=== PATIENT | male | born 1935 | race Two or more races ===

== ENCOUNTER 2022-11-30 18:34 | Inpatient (IN) | payer MEDICARE, OTHER ==
[~2022-11-30] VITALS: Ht 182.9 cm; Wt 71.3 kg
[2022-11-30 20:31] LABS: BASOPHILS % 0.4 % (0.0-2.0); EOSINOPHILS % 0.1 % (0.0-5.0); HEMATOCRIT. 45.7 % (42.0-52.0); HEMOGLOBIN. 15.4 g/dL (14.0-18.0); MEAN CORPUSCULAR HEMOGLOBIN 29.7 pg (28.0-32.0); MEAN CORPUSCULAR HGB CONC 33.7 g/dL (31.0-37.0); MEAN CORPUSCULAR VOLUME 88.1 fL (80.0-94.0); MONOCYTES % 4.9 % (2.0-8.0); NEUTROPHILS % 82.6 % (40.0-76.0); PLATELET 238 x1000/uL (130-400); RED BLOOD CELL COUNT 5.18 mill/uL (4.7-6.1); WHITE BLOOD COUNT 17.1 x1000/uL (4.5-11.0)
[2022-11-30 20:43] LABS: CHLORIDE 130 mEq/L (98-107); INDEX HEMOLYSI 1 (1-3); INDEX ICTERIC 1 (1-4); INDEX LIPEMIC 1 (1-3); POTASSIUM 3.6 mEq/L (3.5-5.1); SODIUM 155 mEq/L (136-145)
[2022-11-30 20:54] LABS: ALANINE AMINOTRANSFERASE 34 IU/L (13-61); ALBUMIN 3.8 g/dL (3.4-5.0); ASPARTATE AMINOTRANSFERASE 54 IU/L (15-37); BILIRUBIN TOTAL 0.9 mg/dL (0.1-1.0); CALCIUM 9.6 mg/dL (8.5-10.1); CARBON DIOXIDE 21 mEq/L (21-32); CREATININE 3.1 mg/dL (0.6-1.3); ETHANOL BLOOD < 10 mg/dL (-10); GLUCOSE 204 mg/dL (70-105); PROTEIN TOTAL 7.6 g/dL (6.0-8.3); UREA NITROGEN BLOOD 64 mg/dL (7-21)
[2022-11-30 21:21] LABS: TROPONIN I HIGH SENSITIVITY 3280 ng/L (<78)
[2022-11-30] MEDS ORDERED: ASPIRIN 81MG TABLET PO ONE (23:15)
[2022-11-30] MEDS ORDERED: SODIUM CHLORIDE 0.45% 1,000 ML IV ONE (23:15)
[2022-11-30] MEDS ORDERED: ENOXAPARIN 80MG/0.8ML SYR SUBCUT ONE (23:15)
[2022-11-30] MEDS ORDERED: SODIUM CHLORIDE 0.9% 500 ML IV ONE (23:15)
[2022-12-01] MEDS ORDERED: DILTIAZEM HCL 5MG/ML 5ML VIAL IV NR (10:15)
[2022-12-01] MEDS ORDERED: CLOP75TA33 PO (10:36)
[2022-12-01] MEDS ORDERED: ATOR20TA65 PO (10:36)
[2022-12-01] MEDS ORDERED: AMLO10TA80 PO (10:36)
[2022-12-01 10:43] LABS: BASOPHILS % 0.3 % (0.0-2.0); HEMATOCRIT. 44.4 % (42.0-52.0); HEMOGLOBIN. 14.6 g/dL (14.0-18.0); LYMPHOCYTES % 12.9 % (20.0-50.0); MEAN CORPUSCULAR HEMOGLOBIN 29.5 pg (28.0-32.0); MEAN CORPUSCULAR HGB CONC 32.8 g/dL (31.0-37.0); MEAN CORPUSCULAR VOLUME 89.9 fL (80.0-94.0); MEAN PLATELET VOLUME 9.1 fl (7.4-10.4); MONOCYTES % 4.3 % (2.0-8.0); NEUTROPHILS % 82.5 % (40.0-76.0); PLATELET 212 x1000/uL (130-400); RED BLOOD CELL COUNT 4.94 mill/uL (4.7-6.1); RED CELL DISTRIBUTION WIDTH 15.9 % (11.6-14.6); WHITE BLOOD COUNT 16.2 x1000/uL (4.5-11.0)
[2022-12-01] MEDS: ASPIRIN 81MG TABLET PO SCH (10:45)
[2022-12-01] MEDS ORDERED: ONDANSETRON HCL 4MG/2ML INJ IV PRN (10:45)
[2022-12-01] MEDS ORDERED: ACETAMINOPHEN 325MG TABLET PO PRN (10:45)
[2022-12-01] MEDS: DEXT 5%/0.45% NACL 1000ML 1,000 ML IV SCH ×2 (10:45→20:44)
[2022-12-01] MEDS ORDERED: DEXTROSE 50% WATER 50ML SYRINGE IV PRN (10:45)
[2022-12-01 10:52] LABS: CALCIUM 9.1 mg/dL (8.5-10.1); POTASSIUM 3.5 mEq/L (3.5-5.1)
[2022-12-01 11:01] LABS: CREATININE 3.3 mg/dL (0.6-1.3)
[2022-12-01] MEDS ORDERED: PIPERACILLIN/TAZ 3.375G PREMIX 50 ML IV NR (11:45)
[2022-12-01] MEDS: INSULIN LISPRO 100 UNITS/ML SUBCUT SCH ×3 (12:00→20:49)
[2022-12-01 12:01] LABS: INR 1.3; PROTHROMBIN TIME 13.7 sec (9.6-11.0)
[2022-12-01] MEDS: BLOOD SUGAR DIAGNOSTIC STRIP TEST SCH ×3 (12:25→20:44)
[2022-12-01] MEDS ORDERED: IPRATROPIUM/ALBUTEROL 0.5-3(2.5)MG/3ML NEB HHN PRN (14:30)
[2022-12-01] MEDS ORDERED: LORAZEPAM 2MG/ML CPJ IV NR ×2 (15:15→17:15)
[2022-12-01 15:19] LABS: CLARITY URINE CLEAR (CLEAR); COLOR URINE DARK YELLOW (YELLOW); GLUCOSE URINE NEGATIVE (NEGATIVE); KETONES URINE TRACE (NEGATIVE); LEUKOCYTE ESTERASE URINE TRACE (NEGATIVE); NITRITE URINE NEGATIVE (NEGATIVE); OCCULT BLOOD URINE 3+ (NEGATIVE); PH URINE 5.5 (4.5-8.0); PROTEIN URINE 1+ (NEGATIVE); SPECIFIC GRAVITY URINE 1.016 (1.005-1.030)
[2022-12-01 15:22] LABS: SQUAMOUS EPITHELIAL CELL URINE 1+ /lpf (RARE/1+); YEAST URINE NONE SEEN
[2022-12-01 16:05] LABS: CREATINE KINASE MB FRACTION 32.4 ng/mL (0.5-3.6)
[2022-12-01 16:38] LABS: *AMPHETAMINES SCREEN URINE NEGATIVE (NEGATIVE); *BARBITURATES SCREEN URINE NEGATIVE (NEGATIVE); *BENZODIAZEPINES SCREEN URINE NEGATIVE (NEGATIVE); *COCAINE SCREEN URINE NEGATIVE (NEGATIVE); CANNABINOID URINE SCREEN NEGATIVE (NEGATIVE); ECSTASY MDMA SCREEN URINE NEGATIVE (NEGATIVE); METHADONE URINE SCREEN NEGATIVE (NEGATIVE); OPIATES URINE SCREEN NEGATIVE (NEGATIVE); PHENCYCLIDINE URINE SCREEN NEGATIVE (NEGATIVE)
[2022-12-01 16:51] LABS: BACTERIA URINE 2+
[2022-12-01 16:52] LABS: HYALINE CASTS URINE 0-5 /lpf; WBC URINE 0-2 /hpf (0-2)
[2022-12-01 17:45] LABS: INDEX HEMOLYSI 3 (1-3)
[2022-12-01 17:55] VITALS: BP 122/86; PULSE 87; RESP 14; TEMP 98.2
[2022-12-01 18:13] LABS: VITAMIN B12 SERUM 651 pg/mL (211-911)
[2022-12-01 20:00] VITALS: BP 108/71; PULSE 88; RESP 20; TEMP 98.6
[2022-12-01 20:43] LABS: AMMONIA 64 uMol/L (<32)
[2022-12-01 20:53] LABS: THYROID STIMULATING HORMONE 1.9 uIU/mL (0.36-3.74)
[2022-12-01 21:00] VITALS: BP 108/71; PULSE 88; RESP 20; TEMP 98.6
[2022-12-01] MEDS ORDERED: ASPI-1497 PO (22:26)
[2022-12-01] MEDS ORDERED: OXYB5TAB17 PO (22:26)
[2022-12-01 22:39] LABS: BG BASE EXCESS -5.1 mmol/L (-2.0-2.0); BG CARBOXYHEMOGLOBIN 0.2 % (0.5-1.5); BG DEOXYHEMOGLOBIN 2.9 % (0.0-5.0); BG FRACTION INSPIRED OXYGEN 21; BG HCO3 ACT 18.6 mmol/L (22.0-26.0); BG METHEMOGLOBIN 0.3 % (0.0-1.5); BG OXYGEN SATURATION 97.1 % (92.0-98.5); BG OXYHEMOGLOBIN 96.6 % (94.0-97.0); BG PCO2 31.7 mmHg (35.0-45.0); BG PH 7.386 (7.350-7.450); BG PO2 101.7 mmHg (75.0-100.0); BG SAMPLE SITE LEFT RADIAL; BG TOTAL HEMOGLOBIN 16.1 g/dL (12.0-18.0); BG VENT MODE ROOM AIR
[2022-12-01] MEDS ORDERED: ENOXAPARIN 80MG/0.8ML SYR SUBCUT SCH (23:00)
[2022-12-01] MEDS ORDERED: PIPERACILLIN/TAZOBACTAM 3.375 G in DEXTROSE 5% WATER 50 ML IV SCH (23:00)
[2022-12-01] MEDS: PIPERACILLIN/TAZOBACTAM 3.375 G in DEXTROSE 5% WATER 50 ML IV SCH (23:02)
[2022-12-02] VITALS (55 sets, daily range): BP systolic 98–173; BP diastolic 60–128; PULSE 55–172; RESP 15–37; TEMP 97.4–98.2
[2022-12-02 00:39] LABS: CREATINE KINASE MB FRACTION 54.6 ng/mL (0.5-3.6)
[2022-12-02] MEDS: LACTULOSE 20G/30ML UDC PO SCH ×3 (05:40→21:48)
[2022-12-02 06:08] LABS: BASOPHILS % 0.1 % (0.0-2.0); HEMATOCRIT. 46.3 % (42.0-52.0); HEMOGLOBIN. 15.1 g/dL (14.0-18.0); LYMPHOCYTES % 8.9 % (20.0-50.0); MEAN CORPUSCULAR HGB CONC 32.7 g/dL (31.0-37.0); MEAN CORPUSCULAR VOLUME 88.6 fL (80.0-94.0); MONOCYTES % 4.8 % (2.0-8.0); NEUTROPHILS % 86.2 % (40.0-76.0); RED BLOOD CELL COUNT 5.22 mill/uL (4.7-6.1); RED CELL DISTRIBUTION WIDTH 15.9 % (11.6-14.6); WHITE BLOOD COUNT 16.7 x1000/uL (4.5-11.0)
[2022-12-02 06:13] LABS: DIFFERENTIAL COMMENT 1
[2022-12-02] MEDS: BLOOD SUGAR DIAGNOSTIC STRIP TEST SCH ×4 (06:16→21:02)
[2022-12-02] MEDS: INSULIN LISPRO 100 UNITS/ML SUBCUT SCH ×4 (06:18→21:00)
[2022-12-02 06:27] LABS: POTASSIUM 4.3 mEq/L (3.5-5.1)
[2022-12-02 06:37] LABS: CALCIUM 9.3 mg/dL (8.5-10.1); CREATININE 3.4 mg/dL (0.6-1.3)
[2022-12-02] MEDS: ASPIRIN 81MG TABLET PO SCH (08:41)
[2022-12-02] MEDS: CLOPIDOGREL 75MG TABLET PO SCH (08:51)
[2022-12-02] MEDS ORDERED: ATORVASTATIN CALCIUM 20MG TABLET PO SCH (09:00)
[2022-12-02] MEDS: PIPERACILLIN/TAZOBACTAM 3.375 G in DEXTROSE 5% WATER 50 ML IV SCH ×2 (11:22→20:25)
[2022-12-02 11:26] LABS: MEAN PLATELET VOLUME 10.1 fl (7.4-10.4); PLATELET 210 x1000/uL (130-400)
[2022-12-02] MEDS ORDERED: DEXTROSE 5% WATER 1,000 ML IV SCH (11:30)
[2022-12-02 13:02] LABS: INDEX HEMOLYSI 1 (1-3)
[2022-12-02 13:21] LABS: CREATINE KINASE 2588 IU/L (39-308)
[2022-12-02] MEDS: SODIUM BICARBONATE 50 MEQ in DEXTROSE 5% WATER 1,000 ML IV SCH (18:40)
[2022-12-02] MEDS ORDERED: NICARDIPINE 40MG/200ML PREMIX 200 ML IV PRN (22:45)
[2022-12-02] MEDS ORDERED: NICARDIPINE 50 MG in SODIUM CHLORIDE 0.9% 250 ML IV PRN (23:00)
[2022-12-02] MEDS ORDERED: ENOXAPARIN 60MG/0.6ML SYR SUBCUT SCH (23:00)
[2022-12-03] VITALS (37 sets, daily range): BP systolic 89–153; BP diastolic 50–89; PULSE 53–81; RESP 14–28; TEMP 97.5–98.5
[2022-12-03] MEDS: SODIUM BICARBONATE 50 MEQ in DEXTROSE 5% WATER 1,000 ML IV SCH ×3 (03:08→17:22)
[2022-12-03] MEDS: BLOOD SUGAR DIAGNOSTIC STRIP TEST SCH ×4 (05:53→21:00)
[2022-12-03] MEDS: LACTULOSE 20G/30ML UDC PO SCH ×3 (05:53→22:21)
[2022-12-03 06:28] LABS: BASOPHILS % 0.5 % (0.0-2.0); EOSINOPHILS % 0.3 % (0.0-5.0); HEMOGLOBIN. 13.4 g/dL (14.0-18.0); MEAN CORPUSCULAR HEMOGLOBIN 29.5 pg (28.0-32.0); MEAN CORPUSCULAR HGB CONC 33.6 g/dL (31.0-37.0); MEAN CORPUSCULAR VOLUME 87.9 fL (80.0-94.0); MONOCYTES % 4.9 % (2.0-8.0); NEUTROPHILS % 85.3 % (40.0-76.0); PLATELET 179 x1000/uL (130-400); RED BLOOD CELL COUNT 4.55 mill/uL (4.7-6.1); RED CELL DISTRIBUTION WIDTH 15.6 % (11.6-14.6); WHITE BLOOD COUNT 12.6 x1000/uL (4.5-11.0)
[2022-12-03 06:44] LABS: POTASSIUM 3.2 mEq/L (3.5-5.1)
[2022-12-03 06:55] LABS: CALCIUM 8.6 mg/dL (8.5-10.1); CREATININE 2.7 mg/dL (0.6-1.3); PHOSPHORUS 2.9 mg/dL (2.5-4.9)
[2022-12-03] MEDS: INSULIN LISPRO 100 UNITS/ML SUBCUT SCH ×4 (07:00→21:00)
[2022-12-03] MEDS: ASPIRIN 81MG TABLET PO SCH ×2 (09:00→09:11)
[2022-12-03] MEDS: CLOPIDOGREL 75MG TABLET PO SCH ×2 (09:00→09:11)
[2022-12-03] MEDS: PIPERACILLIN/TAZOBACTAM 3.375 G in DEXTROSE 5% WATER 50 ML IV SCH (09:11)
[2022-12-03] MEDS ORDERED: DILTIAZEM HCL 5MG/ML 5ML VIAL IV PRN (10:30)
[2022-12-03 12:31] LABS: HEMATOCRIT 40.4 % (42.0-52.0); HEMOGLOBIN 13.4 g/dL (14.0-18.0)
[2022-12-03] MEDS ORDERED: POTASSIUM CHLORIDE INJ 40 MEQ in DEXT 5% WATER 250 ML IV NR (17:00)
[2022-12-03] MEDS: DILTIAZEM HCL 5MG/ML 5ML VIAL IV PRN (17:21)
[2022-12-03] MEDS: CLONIDINE 0.1MG TABLET PO PRN (17:21)
[2022-12-03] MEDS: ATORVASTATIN CALCIUM 20MG TABLET PO SCH (22:21)
[2022-12-04] MEDS: PIPERACILLIN/TAZOBACTAM 3.375 G in DEXTROSE 5% WATER 50 ML IV SCH ×3 (02:37→23:04)
[2022-12-04 04:00] VITALS: BP 154/90; PULSE 81; RESP 28; TEMP 98
[2022-12-04] MEDS: BLOOD SUGAR DIAGNOSTIC STRIP TEST SCH ×4 (06:50→21:00)
[2022-12-04] MEDS: INSULIN LISPRO 100 UNITS/ML SUBCUT SCH ×4 (07:20→22:54)
[2022-12-04] MEDS: LACTULOSE 20G/30ML UDC PO SCH ×3 (07:50→22:58)
[2022-12-04 07:55] LABS: BASOPHILS % 0.4 % (0.0-2.0); EOSINOPHILS % 0.9 % (0.0-5.0); HEMATOCRIT. 41.3 % (42.0-52.0); HEMOGLOBIN. 13.5 g/dL (14.0-18.0); MEAN CORPUSCULAR HEMOGLOBIN 29.5 pg (28.0-32.0); MEAN CORPUSCULAR HGB CONC 32.7 g/dL (31.0-37.0); MEAN CORPUSCULAR VOLUME 90.1 fL (80.0-94.0); MEAN PLATELET VOLUME 10.4 fl (7.4-10.4); MONOCYTES % 9.1 % (2.0-8.0); NEUTROPHILS % 79.6 % (40.0-76.0); PLATELET 157 x1000/uL (130-400); RED BLOOD CELL COUNT 4.59 mill/uL (4.7-6.1); RED CELL DISTRIBUTION WIDTH 15.9 % (11.6-14.6); WHITE BLOOD COUNT 16.1 x1000/uL (4.5-11.0)
[2022-12-04 08:00] VITALS: BP 120/81; PULSE 78; RESP 21; TEMP 98.2
[2022-12-04 10:53] LABS: CALCIUM 8.8 mg/dL (8.5-10.1); CREATININE 2.1 mg/dL (0.6-1.3)
[2022-12-04 11:46] LABS: POTASSIUM 4.2 mEq/L (3.5-5.1)
[2022-12-04 12:00] VITALS: BP 138/89; PULSE 88; RESP 26; TEMP 98.6
[2022-12-04] MEDS ORDERED: GUAIFENESIN 200MG/10ML SUGAR FREE UDC PO PRN (13:15)
[2022-12-04 16:00] VITALS: BP 155/95; PULSE 83; RESP 26; TEMP 98.2
[2022-12-04] MEDS: DOXYCYCLINE HYCLATE 100MG CAPSULE PO SCH (17:01)
[2022-12-04 20:00] VITALS: BP 136/84; PULSE 82; RESP 25; TEMP 98.5
[2022-12-04] MEDS: SODIUM BICARBONATE 50 MEQ in DEXTROSE 5% WATER 1,000 ML IV SCH (20:39)
[2022-12-04 20:51] VITALS: PULSE 80; RESP 22; O2SAT 100
[2022-12-04] MEDS: IPRATROPIUM/ALBUTEROL 0.5-3(2.5)MG/3ML NEB HHN SCH (20:51)
[2022-12-04] MEDS: ATORVASTATIN CALCIUM 20MG TABLET PO SCH (22:42)
[2022-12-05] VITALS (9 sets, daily range): BP systolic 116–158; BP diastolic 72–93; PULSE 75–145; RESP 18–24; TEMP 97.3–98.8; O2SAT 99–100
[2022-12-05] MEDS: LACTULOSE 20G/30ML UDC PO SCH ×3 (06:00→22:00)
[2022-12-05 06:32] LABS: BASOPHILS % 0.4 % (0.0-2.0); EOSINOPHILS % 0.3 % (0.0-5.0); HEMATOCRIT. 36.3 % (42.0-52.0); HEMOGLOBIN. 11.9 g/dL (14.0-18.0); LYMPHOCYTES % 9.3 % (20.0-50.0); MEAN CORPUSCULAR HEMOGLOBIN 28.8 pg (28.0-32.0); MEAN CORPUSCULAR HGB CONC 32.8 g/dL (31.0-37.0); MEAN CORPUSCULAR VOLUME 87.8 fL (80.0-94.0); MEAN PLATELET VOLUME 10.8 fl (7.4-10.4); MONOCYTES % 6.5 % (2.0-8.0); NEUTROPHILS % 83.5 % (40.0-76.0); PLATELET 160 x1000/uL (130-400); RED BLOOD CELL COUNT 4.14 mill/uL (4.7-6.1); RED CELL DISTRIBUTION WIDTH 15.4 % (11.6-14.6); WHITE BLOOD COUNT 11.6 x1000/uL (4.5-11.0)
[2022-12-05 06:40] LABS: INR 1.3; PROTHROMBIN TIME 13.5 sec (9.6-11.0)
[2022-12-05 06:41] LABS: POTASSIUM 3.1 mEq/L (3.5-5.1)
[2022-12-05 06:50] LABS: ALBUMIN 2.6 g/dL (3.4-5.0); BILIRUBIN DIRECT 0.3 mg/dL (0.0-0.2); BILIRUBIN TOTAL 0.7 mg/dL (0.1-1.0); CALCIUM 8.6 mg/dL (8.5-10.1); CREATININE 1.9 mg/dL (0.6-1.3); PROTEIN TOTAL 6.1 g/dL (6.0-8.3)
[2022-12-05] MEDS: BLOOD SUGAR DIAGNOSTIC STRIP TEST SCH ×4 (07:04→21:46)
[2022-12-05] MEDS: SODIUM BICARBONATE 50 MEQ in DEXTROSE 5% WATER 1,000 ML IV SCH (07:11)
[2022-12-05] MEDS: IPRATROPIUM/ALBUTEROL 0.5-3(2.5)MG/3ML NEB HHN SCH ×3 (08:50→20:51)
[2022-12-05] MEDS: DOXYCYCLINE HYCLATE 100MG CAPSULE PO SCH ×2 (09:00→17:08)
[2022-12-05] MEDS: DEXTROSE 5% WATER 1,000 ML IV SCH ×2 (09:01→17:55)
[2022-12-05] MEDS: PIPERACILLIN/TAZOBACTAM 3.375 G in DEXTROSE 5% WATER 50 ML IV SCH ×2 (09:03→23:33)
[2022-12-05] MEDS: INSULIN LISPRO 100 UNITS/ML SUBCUT SCH ×3 (09:25→16:55)
[2022-12-05] MEDS ORDERED: POTASSIUM CHLORIDE INJ 40 MEQ in DEXT 5% WATER 250 ML IV NR (11:00)
[2022-12-05] MEDS ORDERED: PROPOFOL 200MG/20ML VIAL IV ONE (12:45)
[2022-12-05] MEDS ORDERED: DEXAMETHASONE 4MG/ML 1ML VIAL ONE (13:09)
[2022-12-05] MEDS ORDERED: ONDANSETRON HCL 4MG/2ML INJ ONE (13:09)
[2022-12-05] MEDS: DILTIAZEM HCL 5MG/ML 5ML VIAL IV PRN (20:02)
[2022-12-05] MEDS: ATORVASTATIN CALCIUM 20MG TABLET PO SCH (21:00)
[2022-12-05] MEDS ORDERED: DILTIAZEM HCL 125 MG in DEXT 5% WATER 100 ML IV SCH (22:45)
[2022-12-06] VITALS (10 sets, daily range): BP systolic 97–157; BP diastolic 51–93; PULSE 49–166; RESP 16–23; TEMP 97.4–98.6; O2SAT 99
[2022-12-06] MEDS: IPRATROPIUM/ALBUTEROL 0.5-3(2.5)MG/3ML NEB HHN SCH ×4 (00:55→20:35)
[2022-12-06] MEDS: DEXTROSE 5% WATER 1,000 ML IV SCH ×2 (04:30→15:26)
[2022-12-06] MEDS: INSULIN LISPRO 100 UNITS/ML SUBCUT SCH ×5 (04:31→21:21)
[2022-12-06] MEDS: BLOOD SUGAR DIAGNOSTIC STRIP TEST SCH ×4 (06:50→21:00)
[2022-12-06 08:05] LABS: HEMOGLOBIN. 11.7 g/dL (14.0-18.0); MEAN CORPUSCULAR HEMOGLOBIN 28.9 pg (28.0-32.0); MEAN CORPUSCULAR HGB CONC 32.6 g/dL (31.0-37.0); MEAN CORPUSCULAR VOLUME 88.5 fL (80.0-94.0); MEAN PLATELET VOLUME 10.9 fl (7.4-10.4); PLATELET 144 x1000/uL (130-400); RED BLOOD CELL COUNT 4.07 mill/uL (4.7-6.1); RED CELL DISTRIBUTION WIDTH 15.6 % (11.6-14.6); WHITE BLOOD COUNT 13.8 x1000/uL (4.5-11.0)
[2022-12-06 08:08] LABS: DIFFERENTIAL COMMENT 1
[2022-12-06 08:46] LABS: POTASSIUM 3.8 mEq/L (3.5-5.1)
[2022-12-06 08:51] LABS: CALCIUM 8.6 mg/dL (8.5-10.1); CREATININE 1.6 mg/dL (0.6-1.3)
[2022-12-06] MEDS: LACTULOSE 20G/30ML UDC PO SCH ×3 (09:04→21:23)
[2022-12-06] MEDS: DOXYCYCLINE HYCLATE 100MG CAPSULE PO SCH ×2 (09:04→18:57)
[2022-12-06] MEDS: PIPERACILLIN/TAZOBACTAM 3.375 G in DEXTROSE 5% WATER 50 ML IV SCH ×2 (09:41→21:03)
[2022-12-06 14:29] LABS: PLATELET ESTIMATE NORMAL
[2022-12-06 14:30] LABS: ANISOCYTOSIS 1+
[2022-12-06] MEDS ORDERED: LORAZEPAM 2MG/ML CPJ IV PRN (20:00)
[2022-12-06] MEDS ORDERED: MIDODRINE HCL 5MG TABLET PO SCH (21:00)
[2022-12-06] MEDS: ATORVASTATIN CALCIUM 20MG TABLET PO SCH (21:02)
[2022-12-07] VITALS (11 sets, daily range): BP systolic 123–156; BP diastolic 75–95; PULSE 70–89; RESP 14–24; TEMP 89.9–98.6; O2SAT 94–98
[2022-12-07] MEDS: IPRATROPIUM/ALBUTEROL 0.5-3(2.5)MG/3ML NEB HHN SCH ×4 (02:14→19:48)
[2022-12-07] MEDS: DEXTROSE 5% WATER 1,000 ML IV SCH ×3 (04:30→21:32)
[2022-12-07] MEDS: LACTULOSE 20G/30ML UDC PO SCH ×3 (06:33→21:32)
[2022-12-07] MEDS: BLOOD SUGAR DIAGNOSTIC STRIP TEST SCH ×4 (06:50→21:00)
[2022-12-07] MEDS: INSULIN LISPRO 100 UNITS/ML SUBCUT SCH ×4 (07:04→21:33)
[2022-12-07] MEDS: DOXYCYCLINE HYCLATE 100MG CAPSULE GT SCH ×2 (09:06→17:50)
[2022-12-07] MEDS: MIDODRINE HCL 5MG TABLET PEG SCH ×3 (09:06→17:00)
[2022-12-07 12:14] LABS: BASOPHILS % 0.3 % (0.0-2.0); EOSINOPHILS % 1.6 % (0.0-5.0); HEMATOCRIT. 36.3 % (42.0-52.0); HEMOGLOBIN. 12.1 g/dL (14.0-18.0); MEAN CORPUSCULAR HEMOGLOBIN 29.5 pg (28.0-32.0); MEAN CORPUSCULAR HGB CONC 33.3 g/dL (31.0-37.0); MEAN CORPUSCULAR VOLUME 88.6 fL (80.0-94.0); MONOCYTES % 7.5 % (2.0-8.0); NEUTROPHILS % 81.6 % (40.0-76.0); PLATELET 157 x1000/uL (130-400); RED BLOOD CELL COUNT 4.09 mill/uL (4.7-6.1); RED CELL DISTRIBUTION WIDTH 15.7 % (11.6-14.6); WHITE BLOOD COUNT 11.9 x1000/uL (4.5-11.0)
[2022-12-07 12:48] LABS: POTASSIUM 3.5 mEq/L (3.5-5.1)
[2022-12-07 12:55] LABS: CALCIUM 8.7 mg/dL (8.5-10.1); CREATININE 1.4 mg/dL (0.6-1.3)
[2022-12-07] MEDS: CLONIDINE 0.1MG TABLET PO PRN (16:13)
[2022-12-07] MEDS: ATORVASTATIN CALCIUM 20MG TABLET PO SCH (21:32)
[2022-12-08] VITALS (12 sets, daily range): BP systolic 105–137; BP diastolic 62–94; PULSE 91–137; RESP 20–33; TEMP 97.8–99; O2SAT 94–100
[2022-12-08] MEDS: IPRATROPIUM/ALBUTEROL 0.5-3(2.5)MG/3ML NEB HHN SCH ×5 (02:08→21:34)
[2022-12-08] MEDS: BLOOD SUGAR DIAGNOSTIC STRIP TEST SCH ×4 (06:50→20:40)
[2022-12-08] MEDS: DEXTROSE 5% WATER 1,000 ML IV SCH (06:59)
[2022-12-08] MEDS: LACTULOSE 20G/30ML UDC PO SCH ×3 (06:59→20:40)
[2022-12-08] MEDS: INSULIN LISPRO 100 UNITS/ML SUBCUT SCH ×4 (07:00→20:41)
[2022-12-08 07:31] LABS: BASOPHILS % 0.4 % (0.0-2.0); EOSINOPHILS % 1.4 % (0.0-5.0); HEMATOCRIT. 39.3 % (42.0-52.0); HEMOGLOBIN. 12.8 g/dL (14.0-18.0); LYMPHOCYTES % 8.7 % (20.0-50.0); MEAN CORPUSCULAR HGB CONC 32.6 g/dL (31.0-37.0); MEAN CORPUSCULAR VOLUME 88.9 fL (80.0-94.0); MONOCYTES % 10.3 % (2.0-8.0); NEUTROPHILS % 79.2 % (40.0-76.0); RED BLOOD CELL COUNT 4.42 mill/uL (4.7-6.1); RED CELL DISTRIBUTION WIDTH 15.9 % (11.6-14.6); WHITE BLOOD COUNT 12.6 x1000/uL (4.5-11.0)
[2022-12-08 07:34] LABS: POTASSIUM 3.3 mEq/L (3.5-5.1)
[2022-12-08 07:41] LABS: DIFFERENTIAL COMMENT 1
[2022-12-08 07:42] LABS: CREATININE 1.2 mg/dL (0.6-1.3)
[2022-12-08] MEDS ORDERED: LIDOCAINE HCL 1% 10 MG/ML 10ML VIAL ONE ×2 (07:56→11:07)
[2022-12-08] MEDS ORDERED: PROPOFOL 200MG/20ML VIAL IV ONE (07:57)
[2022-12-08] MEDS ORDERED: FENTANYL CITRATE/PF 50MCG/ML 2ML VIAL ONE (07:59)
[2022-12-08] MEDS ORDERED: PHENYLEPHRINE HCL 10 MG/ML 1ML (IV VIAL) IV ONE (08:01)
[2022-12-08 08:29] LABS: PLATELET 138 x1000/uL (130-400)
[2022-12-08] MEDS ORDERED: POTASSIUM CHLORIDE 20MEQ/PACKET PO NR (08:59)
[2022-12-08] MEDS: MIDODRINE HCL 5MG TABLET PEG SCH ×3 (09:00→19:06)
[2022-12-08] MEDS: DOXYCYCLINE HYCLATE 100MG CAPSULE GT SCH ×2 (09:00→17:00)
[2022-12-08] MEDS ORDERED: IODIXANOL 320MG/ML 100 ML BOTTLE IV ONE (11:07)
[2022-12-08] MEDS ORDERED: GENTAMICIN SULF 40MG/ML 2ML VIAL ONE (11:07)
[2022-12-08] MEDS ORDERED: LIDOCAINE HCL 1% 20ML VIAL (Pyxis) INJ ONE (11:08)
[2022-12-08] MEDS ORDERED: GENTAMICIN/NS IRRIGATION 500 ML IR NR (11:15)
[2022-12-08] MEDS ORDERED: AMIODARONE HCL 50MG/ML 3ML VIAL IV ONE (12:29)
[2022-12-08] MEDS ORDERED: AMIODARONE HCL 900 MG in DEXT 5% WATER 482 ML IV SCH (13:45)
[2022-12-08] MEDS ORDERED: NALOXONE HCL 0.4MG/ML VIAL IV PRN (14:45)
[2022-12-08 17:49] LABS: BG CARBOXYHEMOGLOBIN 0.3 % (0.5-1.5); BG DEOXYHEMOGLOBIN 12.9 % (0.0-5.0); BG FRACTION INSPIRED OXYGEN 60; BG HCO3 ACT 19.8 mmol/L (22.0-26.0); BG METHEMOGLOBIN 0.4 % (0.0-1.5); BG OXYHEMOGLOBIN 86.4 % (94.0-97.0); BG PCO2 32.7 mmHg (35.0-45.0); BG PH 7.399 (7.350-7.450); BG PO2 54.4 mmHg (75.0-100.0); BG SAMPLE SITE RIGHT RADIAL; BG TOTAL HEMOGLOBIN 14.6 g/dL (12.0-18.0); BG VENT MODE MASK - SIMPLE
[2022-12-08] MEDS: ATORVASTATIN CALCIUM 20MG TABLET PO SCH (20:41)
[2022-12-08] MEDS: HYDROCODONE/ACETAMINOPHEN 5/325MG TABLET PO PRN (23:20)
[2022-12-09] VITALS (18 sets, daily range): BP systolic 90–123; BP diastolic 57–70; PULSE 81–92; RESP 16–29; TEMP 98–99.1; O2SAT 91–100
[2022-12-09] MEDS: IPRATROPIUM/ALBUTEROL 0.5-3(2.5)MG/3ML NEB HHN SCH ×6 (02:08→21:38)
[2022-12-09] MEDS: ACETYLCYSTEINE 100MG/ML 10% VIAL 4ML INH SCH ×3 (02:08→21:37)
[2022-12-09] MEDS: LACTULOSE 20G/30ML UDC PO SCH ×3 (05:13→20:50)
[2022-12-09] MEDS: HYDROCODONE/ACETAMINOPHEN 5/325MG TABLET PO PRN (06:30)
[2022-12-09 07:26] LABS: HEMATOCRIT. 35.1 % (42.0-52.0); HEMOGLOBIN. 11.7 g/dL (14.0-18.0); MEAN CORPUSCULAR HEMOGLOBIN 29.2 pg (28.0-32.0); MEAN CORPUSCULAR HGB CONC 33.3 g/dL (31.0-37.0); MEAN CORPUSCULAR VOLUME 87.7 fL (80.0-94.0); MEAN PLATELET VOLUME 10.6 fl (7.4-10.4); PLATELET 114 x1000/uL (130-400); RED CELL DISTRIBUTION WIDTH 15.4 % (11.6-14.6); WHITE BLOOD COUNT 16.1 x1000/uL (4.5-11.0)
[2022-12-09 07:28] LABS: DIFFERENTIAL COMMENT 1
[2022-12-09] MEDS: BLOOD SUGAR DIAGNOSTIC STRIP TEST SCH ×4 (07:30→20:37)
[2022-12-09 08:13] LABS: CALCIUM 8.6 mg/dL (8.5-10.1); POTASSIUM 4.1 mEq/L (3.5-5.1)
[2022-12-09] MEDS: DOXYCYCLINE HYCLATE 100MG CAPSULE GT SCH ×2 (08:54→17:13)
[2022-12-09] MEDS: MIDODRINE HCL 5MG TABLET PEG SCH ×3 (08:55→17:13)
[2022-12-09] MEDS: INSULIN LISPRO 100 UNITS/ML SUBCUT SCH ×4 (09:05→20:50)
[2022-12-09] MEDS ORDERED: FUROSEMIDE 40MG/4ML VIAL IVP NR (09:45)
[2022-12-09 12:25] LABS: BG BASE EXCESS -0.1 mmol/L (-2.0-2.0); BG CARBOXYHEMOGLOBIN 0.3 % (0.5-1.5); BG DEOXYHEMOGLOBIN 1.5 % (0.0-5.0); BG HCO3 ACT 23.2 mmol/L (22.0-26.0); BG METHEMOGLOBIN 0.3 % (0.0-1.5); BG OXYGEN SATURATION 98.5 % (92.0-98.5); BG OXYHEMOGLOBIN 97.9 % (94.0-97.0); BG PCO2 33.6 mmHg (35.0-45.0); BG PH 7.457 (7.350-7.450); BG PO2 149.3 mmHg (75.0-100.0); BG SAMPLE SITE RIGHT RADIAL; BG TOTAL HEMOGLOBIN 12.1 g/dL (12.0-18.0); BG VENT MODE MASK - NRB
[2022-12-09 13:47] LABS: ANISOCYTOSIS 1+; PLATELET ESTIMATE SLIGHTLY DECREASED
[2022-12-09] MEDS: SODIUM CHLORIDE 0.9% 1,000 ML IV SCH (15:00)
[2022-12-09] MEDS: AMIODARONE HCL 200 MG TABLET GT SCH (17:13)
[2022-12-09] MEDS: ATORVASTATIN CALCIUM 20MG TABLET PO SCH (20:37)
[2022-12-09 21:12] LABS: PHOSPHORUS 3.4 mg/dL (2.5-4.9)
[2022-12-09] MEDS: INSULIN GLARGINE 100 UNITS/ML SUBCUT SCH (21:19)
[2022-12-10] VITALS (19 sets, daily range): BP systolic 122–148; BP diastolic 68–91; PULSE 91–102; RESP 20–32; TEMP 97.6–99; O2SAT 98–99
[2022-12-10] MEDS: IPRATROPIUM/ALBUTEROL 0.5-3(2.5)MG/3ML NEB HHN SCH ×6 (00:59→21:59)
[2022-12-10] MEDS: LACTULOSE 20G/30ML UDC PO SCH ×3 (05:31→21:27)
[2022-12-10] MEDS: SODIUM CHLORIDE 0.9% 1,000 ML IV SCH ×3 (05:32→21:29)
[2022-12-10] MEDS: ACETYLCYSTEINE 100MG/ML 10% VIAL 4ML INH SCH ×2 (06:00→14:18)
[2022-12-10 06:51] LABS: HEMATOCRIT. 32.8 % (42.0-52.0); HEMOGLOBIN. 10.9 g/dL (14.0-18.0); MEAN CORPUSCULAR HGB CONC 33.1 g/dL (31.0-37.0); MEAN CORPUSCULAR VOLUME 87.5 fL (80.0-94.0); MEAN PLATELET VOLUME 10.2 fl (7.4-10.4); PLATELET 105 x1000/uL (130-400); RED BLOOD CELL COUNT 3.75 mill/uL (4.7-6.1); RED CELL DISTRIBUTION WIDTH 15.7 % (11.6-14.6)
[2022-12-10 06:54] LABS: DIFFERENTIAL COMMENT 1
[2022-12-10 07:32] LABS: POTASSIUM 4.2 mEq/L (3.5-5.1)
[2022-12-10 07:40] LABS: CALCIUM 8.5 mg/dL (8.5-10.1); CREATININE 2.5 mg/dL (0.6-1.3)
[2022-12-10] MEDS: BLOOD SUGAR DIAGNOSTIC STRIP TEST SCH ×4 (08:02→21:18)
[2022-12-10] MEDS: DOXYCYCLINE HYCLATE 100MG CAPSULE GT SCH ×2 (08:51→16:07)
[2022-12-10] MEDS: AMIODARONE HCL 200 MG TABLET GT SCH ×3 (08:51→16:06)
[2022-12-10] MEDS: INSULIN LISPRO 100 UNITS/ML SUBCUT SCH ×4 (08:53→21:28)
[2022-12-10] MEDS: MIDODRINE HCL 5MG TABLET PEG SCH ×3 (09:00→16:07)
[2022-12-10] MEDS: MEROPENEM 1,000 MG in SODIUM CHLORIDE 0.9% 100 ML IV SCH (13:22)
[2022-12-10 13:58] LABS: PLATELET ESTIMATE SLIGHTLY DECREASED
[2022-12-10] MEDS: ATORVASTATIN CALCIUM 20MG TABLET PO SCH (21:27)
[2022-12-10] MEDS: INSULIN GLARGINE 100 UNITS/ML SUBCUT SCH (21:28)
[2022-12-11] VITALS (17 sets, daily range): BP systolic 127–184; BP diastolic 71–87; PULSE 89–101; RESP 20–35; TEMP 98.2–99.2; O2SAT 97–100
[2022-12-11] MEDS: MEROPENEM 1,000 MG in SODIUM CHLORIDE 0.9% 100 ML IV SCH ×2 (00:07→13:32)
[2022-12-11] MEDS: ACETYLCYSTEINE 100MG/ML 10% VIAL 4ML INH SCH ×4 (01:35→16:27)
[2022-12-11] MEDS: IPRATROPIUM/ALBUTEROL 0.5-3(2.5)MG/3ML NEB HHN SCH ×7 (01:35→20:25)
[2022-12-11] MEDS: LACTULOSE 20G/30ML UDC PO SCH ×3 (05:22→21:24)
[2022-12-11 07:00] LABS: HEMATOCRIT. 30.6 % (42.0-52.0); MEAN CORPUSCULAR HEMOGLOBIN 28.7 pg (28.0-32.0); MEAN CORPUSCULAR HGB CONC 32.6 g/dL (31.0-37.0); MEAN PLATELET VOLUME 10.3 fl (7.4-10.4); PLATELET 95 x1000/uL (130-400); RED BLOOD CELL COUNT 3.48 mill/uL (4.7-6.1); RED CELL DISTRIBUTION WIDTH 15.2 % (11.6-14.6); WHITE BLOOD COUNT 16.6 x1000/uL (4.5-11.0)
[2022-12-11 07:20] LABS: DIFFERENTIAL COMMENT 1
[2022-12-11] MEDS: BLOOD SUGAR DIAGNOSTIC STRIP TEST SCH ×4 (07:30→21:24)
[2022-12-11 07:38] LABS: POTASSIUM 4.1 mEq/L (3.5-5.1)
[2022-12-11] MEDS: MIDODRINE HCL 5MG TABLET PEG SCH ×2 (09:00→09:10)
[2022-12-11] MEDS: AMIODARONE HCL 200 MG TABLET GT SCH ×3 (09:07→18:40)
[2022-12-11] MEDS: DOXYCYCLINE HYCLATE 100MG CAPSULE GT SCH ×2 (09:07→18:40)
[2022-12-11] MEDS: INSULIN LISPRO 100 UNITS/ML SUBCUT SCH ×4 (09:09→21:46)
[2022-12-11 13:08] LABS: PLATELET ESTIMATE DECREASED
[2022-12-11] MEDS ORDERED: BISACODYL 10MG SUPP PR PRN (15:45)
[2022-12-11] MEDS: DILTIAZEM HCL 5MG/ML 5ML VIAL IV PRN (19:55)
[2022-12-11] MEDS: ATORVASTATIN CALCIUM 20MG TABLET PO SCH (21:24)
[2022-12-11] MEDS: SODIUM CHLORIDE 0.9% 1,000 ML IV SCH (21:24)
[2022-12-11] MEDS: INSULIN GLARGINE 100 UNITS/ML SUBCUT SCH (21:45)
[2022-12-12] VITALS (18 sets, daily range): BP systolic 119–164; BP diastolic 69–99; PULSE 82–165; RESP 9–40; TEMP 97.9–98.5; O2SAT 96–98
[2022-12-12] MEDS: IPRATROPIUM/ALBUTEROL 0.5-3(2.5)MG/3ML NEB HHN SCH ×5 (00:17→21:28)
[2022-12-12] MEDS: ACETYLCYSTEINE 100MG/ML 10% VIAL 4ML INH SCH ×2 (00:17→07:59)
[2022-12-12] MEDS: MEROPENEM 1,000 MG in SODIUM CHLORIDE 0.9% 100 ML IV SCH ×3 (01:43→23:31)
[2022-12-12] MEDS: LACTULOSE 20G/30ML UDC PO SCH ×3 (05:37→22:43)
[2022-12-12 07:11] LABS: POTASSIUM 4.4 mEq/L (3.5-5.1)
[2022-12-12 07:18] LABS: CALCIUM 8.9 mg/dL (8.5-10.1); CREATININE 1.5 mg/dL (0.6-1.3)
[2022-12-12 07:28] LABS: HEMATOCRIT. 31.3 % (42.0-52.0); HEMOGLOBIN. 10.4 g/dL (14.0-18.0); MEAN CORPUSCULAR HEMOGLOBIN 29.4 pg (28.0-32.0); MEAN CORPUSCULAR HGB CONC 33.1 g/dL (31.0-37.0); MEAN CORPUSCULAR VOLUME 88.7 fL (80.0-94.0); MEAN PLATELET VOLUME 10.9 fl (7.4-10.4); PLATELET 108 x1000/uL (130-400); RED BLOOD CELL COUNT 3.53 mill/uL (4.7-6.1); RED CELL DISTRIBUTION WIDTH 15.2 % (11.6-14.6); WHITE BLOOD COUNT 15.5 x1000/uL (4.5-11.0)
[2022-12-12 07:33] LABS: DIFFERENTIAL COMMENT 1
[2022-12-12] MEDS: BLOOD SUGAR DIAGNOSTIC STRIP TEST SCH ×4 (07:59→20:57)
[2022-12-12] MEDS: AMIODARONE HCL 200 MG TABLET GT SCH ×3 (08:32→16:06)
[2022-12-12] MEDS: DOCUSATE SODIUM SUGAR FREE 100MG/10ML UDC GT SCH (08:32)
[2022-12-12] MEDS: DOXYCYCLINE HYCLATE 100MG CAPSULE GT SCH ×2 (08:32→16:06)
[2022-12-12] MEDS: INSULIN LISPRO 100 UNITS/ML SUBCUT SCH ×4 (08:34→21:08)
[2022-12-12] MEDS: DILTIAZEM HCL 5MG/ML 5ML VIAL IV PRN (10:21)
[2022-12-12] MEDS ORDERED: DIGOXIN 500MCG/2ML AMP IV NR (11:00)
[2022-12-12] MEDS ORDERED: DIGOXIN 500MCG/2ML AMP IV SCH (12:00)
[2022-12-12] MEDS ORDERED: DIGOXIN 500MCG/2ML AMP IV PRN (12:00)
[2022-12-12 14:20] LABS: PLATELET ESTIMATE SLIGHTLY DECREASED
[2022-12-12] MEDS: METOCLOPRAMIDE HCL 10MG/2ML VIAL IV SCH ×2 (17:26→23:28)
[2022-12-12] MEDS: CLONIDINE 0.1MG TABLET PO PRN (20:56)
[2022-12-12] MEDS: ATORVASTATIN CALCIUM 20MG TABLET PO SCH (20:56)
[2022-12-12] MEDS: INSULIN GLARGINE 100 UNITS/ML SUBCUT SCH (21:07)
[2022-12-12] MEDS: HYDROCODONE/ACETAMINOPHEN 5/325MG TABLET PO PRN (23:55)
[2022-12-13] VITALS (17 sets, daily range): BP systolic 126–156; BP diastolic 65–82; PULSE 87–98; RESP 20–40; TEMP 97.3–99.5; O2SAT 96–98
[2022-12-13] MEDS: IPRATROPIUM/ALBUTEROL 0.5-3(2.5)MG/3ML NEB HHN SCH ×5 (01:22→16:45)
[2022-12-13] MEDS: ACETYLCYSTEINE 100MG/ML 10% VIAL 4ML INH SCH ×3 (01:22→16:45)
[2022-12-13] MEDS: DILTIAZEM HCL 5MG/ML 5ML VIAL IV PRN (02:21)
[2022-12-13] MEDS: METOCLOPRAMIDE HCL 10MG/2ML VIAL IV SCH ×4 (05:51→23:27)
[2022-12-13] MEDS: LACTULOSE 20G/30ML UDC PO SCH ×3 (05:51→21:10)
[2022-12-13 06:40] LABS: BASOPHILS % 0.1 % (0.0-2.0); EOSINOPHILS % 0.4 % (0.0-5.0); HEMOGLOBIN. 10.9 g/dL (14.0-18.0); MEAN CORPUSCULAR HEMOGLOBIN 29.3 pg (28.0-32.0); MEAN CORPUSCULAR HGB CONC 33.1 g/dL (31.0-37.0); MEAN CORPUSCULAR VOLUME 88.5 fL (80.0-94.0); MEAN PLATELET VOLUME 10.1 fl (7.4-10.4); MONOCYTES % 9.5 % (2.0-8.0); PLATELET 122 x1000/uL (130-400); RED BLOOD CELL COUNT 3.73 mill/uL (4.7-6.1); RED CELL DISTRIBUTION WIDTH 15.4 % (11.6-14.6); WHITE BLOOD COUNT 16.2 x1000/uL (4.5-11.0)
[2022-12-13] MEDS: BLOOD SUGAR DIAGNOSTIC STRIP TEST SCH ×4 (07:50→20:39)
[2022-12-13] MEDS: INSULIN LISPRO 100 UNITS/ML SUBCUT SCH ×5 (07:50→21:08)
[2022-12-13 08:02] LABS: POTASSIUM 4.6 mEq/L (3.5-5.1)
[2022-12-13 08:07] LABS: CALCIUM 9.2 mg/dL (8.5-10.1); CREATININE 1.4 mg/dL (0.6-1.3)
[2022-12-13] MEDS: DOCUSATE SODIUM SUGAR FREE 100MG/10ML UDC GT SCH (08:46)
[2022-12-13] MEDS: AMIODARONE HCL 200 MG TABLET GT SCH ×3 (08:46→16:48)
[2022-12-13] MEDS: DOXYCYCLINE HYCLATE 100MG CAPSULE GT SCH ×2 (08:46→16:48)
[2022-12-13] MEDS: DEXTROSE 5% WATER 1,000 ML IV SCH (10:51)
[2022-12-13] MEDS: MEROPENEM 1,000 MG in SODIUM CHLORIDE 0.9% 100 ML IV SCH ×2 (12:25→23:27)
[2022-12-13] MEDS: ATORVASTATIN CALCIUM 20MG TABLET PO SCH (20:39)
[2022-12-13] MEDS: INSULIN GLARGINE 100 UNITS/ML SUBCUT SCH (21:09)
[2022-12-14] VITALS (7 sets, daily range): BP systolic 141–163; BP diastolic 66–91; PULSE 65–81; RESP 22–40; TEMP 97.3–98.6
[2022-12-14] MEDS: LACTULOSE 20G/30ML UDC PO SCH (05:07)
[2022-12-14] MEDS: METOCLOPRAMIDE HCL 10MG/2ML VIAL IV SCH ×2 (05:07→12:54)
[2022-12-14] MEDS: DEXTROSE 5% WATER 1,000 ML IV SCH (05:08)
[2022-12-14 05:37] LABS: BASOPHILS % 0.3 % (0.0-2.0); EOSINOPHILS % 1.5 % (0.0-5.0); HEMATOCRIT. 32.5 % (42.0-52.0); HEMOGLOBIN. 10.5 g/dL (14.0-18.0); LYMPHOCYTES % 8.1 % (20.0-50.0); MEAN CORPUSCULAR HEMOGLOBIN 28.7 pg (28.0-32.0); MEAN CORPUSCULAR HGB CONC 32.2 g/dL (31.0-37.0); MEAN CORPUSCULAR VOLUME 89.2 fL (80.0-94.0); MEAN PLATELET VOLUME 9.8 fl (7.4-10.4); MONOCYTES % 7.9 % (2.0-8.0); NEUTROPHILS % 82.2 % (40.0-76.0); PLATELET 135 x1000/uL (130-400); RED BLOOD CELL COUNT 3.64 mill/uL (4.7-6.1); RED CELL DISTRIBUTION WIDTH 15.4 % (11.6-14.6); WHITE BLOOD COUNT 15.6 x1000/uL (4.5-11.0)
[2022-12-14] MEDS: BLOOD SUGAR DIAGNOSTIC STRIP TEST SCH ×2 (07:30→11:30)
[2022-12-14] MEDS: INSULIN LISPRO 100 UNITS/ML SUBCUT SCH ×2 (08:00→12:57)
[2022-12-14 08:55] LABS: POTASSIUM 4.7 mEq/L (3.5-5.1)
[2022-12-14 09:01] LABS: CALCIUM 9.1 mg/dL (8.5-10.1); CREATININE 1.4 mg/dL (0.6-1.3)
[2022-12-14] MEDS: DOCUSATE SODIUM SUGAR FREE 100MG/10ML UDC GT SCH (09:19)
[2022-12-14] MEDS: DOXYCYCLINE HYCLATE 100MG CAPSULE GT SCH (09:19)
[2022-12-14] MEDS: AMIODARONE HCL 200 MG TABLET GT SCH ×2 (09:19→12:55)
[2022-12-14] MEDS ORDERED: SODIUM CHLORIDE 0.45% 1,000 ML IV SCH (11:30)
[2022-12-14] MEDS: CLONIDINE 0.1MG TABLET PO PRN (12:55)
[2022-12-14] MEDS: MEROPENEM 1,000 MG in SODIUM CHLORIDE 0.9% 100 ML IV SCH (12:56)
== END 2022-12-14 18:15 | DRG 853 ==
LOC: ER 18:34 → MICUSO 23:09 → EDBEDREQTM 23:20 → EDBEDREQ 23:20 → 8WST 12-01 16:27 → MICUSO 12-02 00:17 → MICUNO 12-03 13:16 → 3WST 12-03 20:21 → 5EST 12-08 14:30
PROVIDERS: ATTEND Internal Medicine
PROC: 4A00X4Z Measurement of Central Nervous Electrical Activity, External Approach (ICD-10-PCS; 2022-12-02)
PROC: 0DH63UZ Insertion of Feeding Device into Stomach, Percutaneous Approach (ICD-10-PCS; 2022-12-05)
PROC: 05H633Z Insertion of Infusion Device into Left Subclavian Vein, Percutaneous Approach (ICD-10-PCS; 2022-12-06)
PROC: B547ZZA Ultrasonography of Left Subclavian Vein, Guidance (ICD-10-PCS; 2022-12-06)
PROC: 0JH606Z Insertion of Pacemaker, Dual Chamber into Chest Subcutaneous Tissue and Fascia, Open Approach (ICD-10-PCS; principal; 2022-12-08)
PROC: 02H63JZ Insertion of Pacemaker Lead into Right Atrium, Percutaneous Approach (ICD-10-PCS; 2022-12-08)
PROC: 02HK3JZ Insertion of Pacemaker Lead into Right Ventricle, Percutaneous Approach (ICD-10-PCS; 2022-12-08)
PROC: B517YZZ Fluoroscopy of Left Subclavian Vein using Other Contrast (ICD-10-PCS; 2022-12-08)
DX: A41.9 Sepsis, unspecified organism (principal); G92.8 Other toxic encephalopathy; I21.4 Non-ST elevation (NSTEMI) myocardial infarction; N17.0 Acute kidney failure with tubular necrosis; J18.9 Pneumonia, unspecified organism; J96.90 Respiratory failure, unspecified, unspecified whether with hypoxia or hypercapnia; E87.0 Hyperosmolality and hypernatremia; M62.82 Rhabdomyolysis; E46 Unspecified protein-calorie malnutrition; R64 Cachexia; I48.4 Atypical atrial flutter; I47.1 Supraventricular tachycardia; E87.1 Hypo-osmolality and hyponatremia; I69.351 Hemiplegia and hemiparesis following cerebral infarction affecting right dominant side; Z20.822 Contact with and (suspected) exposure to COVID-19; I48.0 Paroxysmal atrial fibrillation; I49.5 Sick sinus syndrome; E86.0 Dehydration; K29.60 Other gastritis without bleeding; I12.9 Hypertensive chronic kidney disease with stage 1 through stage 4 chronic kidney disease, or unspecified chronic kidney disease; E11.22 Type 2 diabetes mellitus with diabetic chronic kidney disease; N18.9 Chronic kidney disease, unspecified; I25.10 Atherosclerotic heart disease of native coronary artery without angina pectoris; E88.09 Other disorders of plasma-protein metabolism, not elsewhere classified; R13.12 Dysphagia, oropharyngeal phase; I25.2 Old myocardial infarction; Z93.1 Gastrostomy status; Z95.0 Presence of cardiac pacemaker; Z95.5 Presence of coronary angioplasty implant and graft
CPT/HCPCS: 36415; 36573; 36600; 70544; 70547; 70553; 71045; 76705; 76770; 80048; 80053; 80061; 80076; 80305; 80320; 81003; 82140; 82375; 82550; 82553; 82607; 82805; 82962; 83036; 83605; 83735; 84100; 84145; 84443; 84484; 85014; 85018; 85025; 87426; 92610; 93005; 93306; 93880; 93970; 94640; 94664; 94667; 97161; 99291; A4565; C1725; G0378; J0282; J1100; J1160; J1580; J1650; J1815; J1940; J2060; J2185; J2370; J2405; J2543; J2704; J2765; J3010; J3480; J3490; J7030; J7040; J7050; J7060; J7070; J7608; Q9967; A4315; G0480